=== PATIENT | female | born 1955 | race Two or more races ===

== ENCOUNTER → 2023-05-11 14:48 | Outpatient (BNVA) | payer OTHER, SELFPAY | PROVIDERS: PCP Nurse Practitioner Family; Visit Provider Physician Assistant | DX: S80.01XA Contusion of right knee, initial encounter (principal); S63.602A Unspecified sprain of left thumb, initial encounter; W18.30XA Fall on same level, unspecified, initial encounter | CPT/HCPCS: 29085; 73110; 73130; 99203 ==

== ENCOUNTER → 2023-05-17 14:06 | Outpatient (BNVA) | payer OTHER, SELFPAY | PROVIDERS: PCP Nurse Practitioner Family; Visit Provider Physician Assistant Medical | DX: S80.01XA Contusion of right knee, initial encounter (principal); S63.502A Unspecified sprain of left wrist, initial encounter; W18.30XA Fall on same level, unspecified, initial encounter | CPT/HCPCS: 99213 ==

== ENCOUNTER 2025-03-10 16:32 | Emergency (ER) | payer MEDICARE, OTHER, SELFPAY ==
--- NOTE | ~2025-03-10 | CT_ITS ---
CLINICAL HISTORY: fall, lac CT cervical spine without contrast Comparison: None provided Findings: Normal vertebral body alignment. No significant degenerative change. Mild osteopenia. Visualized intracranial contents are unremarkable. The right thyroid lobe is not identified. The left thyroid lobe and isthmus are heterogeneous in attenuation. Lung apices are clear. C1-2: Mild anterior osteoarthrosis. IMPRESSION: 1. Mild osteopenia. 2. Absent right thyroid lobe with heterogeneous left thyroid lobe and isthmus. Nonemergent thyroid ultrasound correlation suggested. 3. No acute osseous injury. This document has been electronically signed by: Rodger Escobar MD on 03/10/2025 18:18:34
--- NOTE | ~2025-03-10 | CT_ITS ---
CLINICAL HISTORY: fall, lac CT maxillofacial without contrast Comparison: None provided Findings: No acute fractures. Temporomandibular joints are intact. Paranasal sinuses and mastoid air cells clear. Orbits normal. Visualized intracranial contents are within normal limits. No foreign bodies. IMPRESSION: Unremarkable maxillofacial CT. This document has been electronically signed by: Rodger Escobar MD on 03/10/2025 18:20:35
--- NOTE | ~2025-03-10 | CT_ITS ---
CLINICAL HISTORY: fall, lac CT head without contrast Comparison: None provided Findings: No intra-axial mass, midline shift, hydrocephalus, or acute hemorrhage. Mild heterogeneous low attenuation in the periventricular white matter. There is no sinus or mastoid fluid. The orbits are unremarkable. No skull fracture. IMPRESSION: 1. Mild chronic periventricular microvascular ischemic disease. 2. No acute intracranial findings. This document has been electronically signed by: Rodger Escobar MD on 03/10/2025 18:14:22
[2025-03-10 16:43] VITALS: BP 142/55; PULSE 97; RESP 16; TEMP 36.7; O2SAT 96
[2025-03-10 16:44] VITALS: BP 130/64; BP 139/63; PULSE 74; PULSE 88; RESP 18; TEMP 36.5; O2SAT 97; BMI 24.6
--- NOTE | 2025-03-10 16:56 | ED_ITS ---
HPI - Fall General Chief Complaint: Fall Stated Complaint: fall, lac to lip, + thinners Time Seen by Provider: 03/10/25 16:51 Source: patient and EMS Mode of arrival: EMS Limitations: no limitations History of Present Illness ED Provider: Gema Cast APRN HPI Narrative: 70 yo female with history of afib on eliquis here after a trip and fall with facial strike. Denies loss of consciousness. Has lip laceration. Denies headache, neck pain, chest pain, abdominal pain, back pain, vomiting, vision changes. No loose teeth. Tetanus UTD Related Data Allergies Allergy/AdvReac Type Severity Reaction Status Date / Time acetaminophen (From PERCOCET) Allergy Unknown SHAKY Verified 03/10/25 16:54 aspirin (ASPIRIN) Allergy Unknown HIVES, Verified 03/10/25 16:54 swelling OF THROAT oxycodone (From PERCOCET) Allergy Unknown SHAKY Verified 03/10/25 16:54 penicillin V Allergy Unknown redness Verified 03/10/25 16:54 and itching Penicillins (PENICILLINS) Allergy Unknown RED, ITCHY Verified 03/10/25 16:54 seafood Allergy Unknown Anaphylaxis Uncoded 03/10/25 16:54 Review of Systems 2 Review of Systems: Yes all other systems are reviewed and are negative Constitutional: Constitutional: Reports no additional constitutional complaints, Denies body ache(s), Denies chills, Denies fever(s), Denies headache(s) and Denies weakness Eyes: Eyes: Reports no additional eye complaints and Denies change in vision ENT: Reports system reviewed and no additional complaints, except as documented, Denies dizziness, Denies headache(s), Denies nasal congestion, Denies nasal discharge and Denies neck pain Cardiovascular: Cardiovascular: Reports no additional cardiovascular complaints, Denies chest pain, Denies leg edema and Denies dyspnea Respiratory: Respiratory: Reports no additional respiratory complaints, Denies cough and Denies dyspnea Gastrointestinal: Gastrointestinal: Reports no additional gastrointestinal complaints, Denies abdominal pain, Denies diarrhea, Denies nausea and Denies vomiting Genitourinary: Genitourinary: Reports no additional female genitourinary complaints and Denies urinary incontinence Musculoskeletal: Musculoskeletal: Reports no additional musculoskeletal complaints, Denies back pain, Denies arthralgias, Denies joint swelling, Denies neck pain, Denies numbness and Denies tingling Integumentary/Breasts: Skin/Breast: Reports system reviewed and no additional complaints, except as docu, Denies rash and Reports wounds Neurologic: Reports system reviewed and no additional complaints, except as documented, Denies Abnormal speech present, Denies dizziness, Denies headache(s), Denies numbness, Denies tingling and Denies weakness PMFSH Past Medical History Attestation statement: The following information was validated with the patient. Source: old records reviewed and nursing notes reviewed Social History Social History Advance Directives: No Advance Directives Information Provided: No Do you have a plan to hurt others: No Plan Physical Exam 2 Vital Signs: Vital Signs: Last Vital Signs Temp 98.3 F 03/10/25 18:03 Pulse 75 03/10/25 18:03 Resp 16 03/10/25 18:03 BP 101/59 L 03/10/25 18:03 Pulse Ox 98 03/10/25 18:03 O2 Del Method Room Air 03/10/25 18:03 BMI result Body Mass Index 24.6 Const: General: cooperative, healthy appearing, comfortable and no acute distress Orientation/consciousness: patient oriented x3 Limitations: no limitations HEENT: Head: Yes normal to inspection, No Garcia's sign and No raccoon eyes Ears: hearing grossly normal bilaterally and TM's normal bilaterally General nose exam: Normal external nose present Face and sinus: Yes normal facial exam Mouth: Normal oral and palatal mucosa present Mouth/tongue images: 1. 3cm lac-opens with lip flip, frenulum intact Throat: Yes posterior oropharynx normal Eyes: General: appearance normal, both eyes and all related structures P upils: Equal, round and reactive pupils present Neck: Other: No cervical midline tenderness, step-offs or deformities Cervical collar in place Neck: Yes normal visual inspection Chest: Chest palpation & inspection: normal inspection of the chest Resp: Effort & Inspection: normal respiratory effort Auscultation: clear to auscultation bilaterally Cardio: Rate: regular rate Rhythm: regular rhythm Peripheral pulses: P eripheral pulses 2+ throughout GI: Inspection: Yes normal to inspection Palpation (GI): Soft to palpation and nontender Auscultation: normal bowel sounds Back/Spine/Pelvis: Thoracic/Lumbar Spine: thoracic and lumbar spine normal to inspection Skin: General skin exam: no rashes or lesions noted Neuro: General: patient oriented x3, no focal motor deficits and normal sensation to monofilament Cranial nerves: Yes Equal, round and reactive pupils present Cognition (Neuro): normal cognition Speech: No Abnormal speech present Gait exam (Neuro): Normal gait present Motor exam (neuro): 5/5 motor strength present throughout Extrem: General: Yes normal to inspection Course Course Course Narrative: See procedure note for laceration closure. Imaging is all negative. Patient will be discharged home with strict return precautions. Reviewed worrisome signs and symptoms. Comfortable with plan for discharge home. Medications Administered Discontinued Medications Generic Name Dose Route Start Last Admin Trade Name Marcus PRN Reason Stop Dose Admin Lidocaine HCl 2 ml 03/10/25 17:02 03/10/25 18:43 Lidocaine Hcl 1 % Mpf 2 Ml Vial INFILTRATI 03/10/25 17:03 2 ml ONCE ONE Administration Lidocaine HCl 2 ml 03/10/25 17:02 03/10/25 18:43 Lidocaine Hcl 1 % Mpf 2 Ml Vial INFILTRATI 03/10/25 17:03 2 ml ONCE ONE Administration Procedures Laceration Laceration 1: Site: lip Size (cm): 3 Description: linear Depth: simple, single layer Local Anesthetic: lidocaine 1% Amount of anesthesia used (mL): 4 Pre-repair: wound explored and irrigated extensively Skin layer closed with: other (polysorb) Size (cm): 5-0 Number of sutures: 4 Technique: simple, interrupted Nerve Block Nerve Block 1: Local Anesthetic: lidocaine 1% Amount of anesthesia used (mL): 4 Nerve Blocks: other (dental) Intraoral Nerve Block: superior alveolar Procedure Successful: Yes Patient Tolerated Procedure: well Complications: none Medical Decision Making Medical Decision Making [facility] Narrative: 70 yo female with history of afib on eliquis here after a trip and fall with facial strike. Denies loss of consciousness. Has lip laceration. Denies headache, neck pain, chest pain, abdominal pain, back pain, vomiting, vision changes. No loose teeth. Tetanus UTD normal neuro exam with no focal deficits Has lip lack that will need repair. See procedure note. Tetanus up-to-date. Will need CT head, cervical spine, facial bones imaging Differential Diagnosis Differential Diagnoses: The differential diagnosis associated with the presentation includes facial fracture cervical fracture versus cervical sprain ICH, basilar skull fracture lip lac Admission/Observation Consideration of admission/observation: Escalation of care including admission/observation considered Lab Data MDM Lab Attestation statement: I reviewed the patient's lab results. Independent Interpretation I performed an independent interpretation of an: CT Scan Interpretation: I independently reviewed the CT scan and agree with rad report Radiology Impression Discussion of test interpretation with radiology: I have reviewed the radiologist's reading. Radiologist Impression: [address] [address] [address] Scan Report Signed Patient: Sandrine Garcias MR#: [id number] : 1955 Acct:[id number] Age/Sex: 70 / F ADM Date: 03/10/25 Loc: .ED Attending Dr: Ordering Physician: Marta Dawson Date of Service: 03/10/25 Procedure(s): CT facial bones wo IV con Accession Number(s): [id number] cc: Marta Dawson; Jung Mullen MD~ Report Number: [id number]: Total DLP = 243.00 mGy-cm Reason for Exam: fall, lac CLINICAL HISTORY: fall, lac CT maxillofacial without contrast Comparison: None provided Findings: No acute fractures. Temporomandibular joints are intact. Paranasal sinuses and mastoid air cells clear. Orbits normal. Visualized intracranial contents are within normal limits. No foreign bodies. IMPRESSION: Unremarkable maxillofacial CT. This document has been [address] [address] [address] Scan Report Signed Patient: Sandrine Garcias MR#: [id number] : 1955 Acct:[id number] Age/Sex: 70 / F ADM Date: 03/10/25 Loc: .ED Attending Dr: Ordering Physician: Marta Dawson Date of Service: 03/10/25 Procedure(s): CT cervical spine wo IV con Accession Number(s): [id number] cc: Marta Dawson; Jung Mullen MD~ Report Number: [id number]: Total DLP = 274.00 mGy-cm Reason for Exam: fall, lac CLINICAL HISTORY: fall, lac CT cervical spine without contrast Comparison: None provided Findings: Normal vertebral body alignment. No significant degenerative change. Mild osteopenia. Visualized intracranial contents are unremarkable. The right thyroid lobe is not identified. The left thyroid lobe and isthmus are heterogeneous in attenuation. Lung apices are clear. C1-2: Mild anterior osteoarthrosis. IMPRESSION: 1. Mild osteopenia. 2. Absent right thyroid lobe with heterogeneous left thyroid lobe and isthmus. Nonemergent thyroid ultrasound correlation suggested. 3. No acute osseous injury. This document has been electronically signed by: Rodger Escobar MD on 03/10/2025 18:18:[address] [address] [address] Scan Report Signed Patient: Sandrine Garcias MR#: [id number] : 1955 Acct:[id number] Age/Sex: 70 / F ADM Date: 03/10/25 Loc: HO.ED Attending Dr: Ordering Physician: Marta Dawson Date of Service: 03/10/25 Procedure(s): CT head/brain wo IV con Accession Number(s): [id number] cc: Marta Dawson; Jung Mullen MD~ Report Number: [id number]: Total DLP = 613.00 mGy-cm Reason for Exam: fall, lac CLINICAL HISTORY: fall, lac CT head without contrast Comparison: None provided Findings: No intra-axial mass, midline shift, hydrocephalus, or acute hemorrhage. Mild heterogeneous low attenuation in the periventricular white matter. There is no sinus or mastoid fluid. The orbits are unremarkable. No skull fracture. IMPRESSION: 1. Mild chronic periventricular microvascular ischemic disease. 2. No acute intracranial findings. This document has been electronically signed by: Rodger Escobar MD on 03/10/2025 18:14:22 Independent Historian Clinical information obtained from an independent historian. History obtained from or confirmed by: EMS Discharge Plan Discharge Clinical Impression: Laceration of lip Patient Disposition: Home, Self-Care Instructions: Laceration (ED) Additional Instructions: we placed four dissolvable sutures in your lip. Please avoid using straws. eat soft foods for the next few days. Referrals: Jung Mullen MD [Primary Care Provider, Internal Medicine] Print Language: Serbian
[2025-03-10 18:03] VITALS: BP 101/59; PULSE 75; RESP 16; TEMP 36.8; O2SAT 98
--- OUTSIDE RECORDS SUMMARY | 2025-03-10 18:14 | XMS_ITS | Patient Health Record ---
Author Organization [facility] [place] Address [address] [place] [address] Care Team Providers Care Wildlife Officer Name Role Phone Sandie Palafox MD Primary Care Provider Unavailab Kishore Gilmore Unavailable [phone] Allergies Allergen (clinical drug ingredient) Drug/Non Drug Allergy documented on EMR Reaction Allergy Type Onset Date Status aspirin Aspirin hives, throat closes Drug Allergy Active latex rash Drug Allergy Active Reason For Referral No Information Medications Medication SIG (Take, Route, Fr equency, Duration) Notes Start Date End Date Status Januvia Active Lisinopril Active Meclizine HCl Active Nitroglycerin Active Plavix Active Actos Active Atenolol Active Crestor Active Ferrous Sulfate Acti ve Glimepiride Active Plan Of Treatment No Information Insurance Providers Payer Name Payer Address Payer Phone Subscriber Number Group Number Insured Name Patient Relationship to Insured Coverage Start Date Coverage End Date [facility] [address] [place] [address] [id number] Sandrine Garcias Self - patient is the insured Medical (General) History Medical History History ICD Code thyroid disorder heart disease diabetes mellitus Surgical History Surgery Date(Month/Year) cholecystectomy 2009 breast surgery 2001 hysterectomy 2004
[2025-03-10] MEDS: Lidocaine HCl 1 % MPF 2 ML VIAL INFILTRATI ×2 (18:43)
[2025-03-10 19:07] VITALS: BP 112/59; PULSE 68; RESP 16; TEMP 36.8; O2SAT 98
== END 2025-03-10 19:11 | disposition home or self-care (01) ==
PROVIDERS: Emergency Provider Emergency Medicine; PCP Family Medicine
DX: S01.511A Laceration without foreign body of lip, initial encounter (principal); M54.2 Cervicalgia; R51.9 Headache, unspecified; W01.10XA Fall on same level from slipping, tripping and stumbling with subsequent striking against unspecified object, initial encounter; Z91.81 History of falling; Y93.01 Activity, walking, marching and hiking; Y92.9 Unspecified place or not applicable; Y99.8 Other external cause status
CPT/HCPCS: 12013; 70450; 70486; 72125; 99284; J2003

== ENCOUNTER → 2025-03-10 16:38 | Outpatient (BNV) | payer MEDICARE, OTHER, SELFPAY | PROVIDERS: Emergency Provider Emergency Medicine; PCP Family Medicine; Visit Provider Radiology Diagnostic Radiology | DX: S11.81XA Laceration without foreign body of other specified part of neck, initial encounter (principal); E07.89 Other specified disorders of thyroid; M85.80 Other specified disorders of bone density and structure, unspecified site; I67.82 Cerebral ischemia; S01.81XA Laceration without foreign body of other part of head, initial encounter; Z04.3 Encounter for examination and observation following other accident | CPT/HCPCS: 70450; 70486; 72125 ==